=== PATIENT | male | born 1995 | race Hispanic/Latino ===

== ENCOUNTER 2021-09-14 07:33 | Emergency (ER) | payer OTHER ==
[~2021-09-14] VITALS: Ht 167.6 cm; Wt 100.3 kg
[2021-09-14] MEDS ORDERED: IBUPROFEN 400 MG TAB PO STA (08:06)
[2021-09-14] MEDS ORDERED: HYDROCODONE/APAP 5MG-325MG TAB ONE (08:15)
[2021-09-14] MEDS ORDERED: IBUPROFEN 400 MG TAB ONE (08:15)
[2021-09-14] MEDS ORDERED: HYDROCODONE/APAP 5MG-325MG TAB PO ONE (08:15)
[2021-09-14] MEDS ORDERED: BACITRACIN ZINC 0.9GM TP ONE (09:00)
[2021-09-14] MEDS ORDERED: LIDOCAINE HCL 1% LOCAL INJ 20 ML VIAL INJ ONE (09:00)
== END 2021-09-14 08:55 | disposition home or self-care (01) ==
LOC: FSED 07:43
DX: S61.412A Laceration without foreign body of left hand, initial encounter (principal); W26.8XXA Contact with other sharp object(s), not elsewhere classified, initial encounter; Y99.0 Civilian activity done for income or pay
CPT/HCPCS: 96372; 99283